=== PATIENT | male | born 1940 | race Caucasian/White ===

== ENCOUNTER 2021-06-25 11:52 | Emergency (ER) | payer MEDICARE, SELFPAY ==
[2021-06-25 11:58] VITALS: BP 142/78; PULSE 68; RESP 18; TEMP 36.4; O2SAT 96; BMI 30.7
--- NOTE | 2021-06-25 12:20 | DI.CT.S_ITS ---
PROCEDURE: CT HEAD/BRAIN WO CON INDICATIONS: fall head injury on Xarelto TECHNIQUE: Noncontrast 4.5 mm thick angled axial sections acquired from the foramen magnum to the vertex, with coronal and sagittal reformats. For radiation dose reduction, the following was used: automated exposure control, adjustment of mA and/or kV according to patient size. COMPARISON: [facility], CR, XR KNEE RT 3V, 06/25/2021, 12:26. FINDINGS: Image quality: Excellent. CSF spaces: Basal cisterns are patent. No extra-axial fluid collections. The ventricles are symmetric in size and shape. Brain: No intracranial bleeds or masses. There is cerebral volume loss for age, with resultant ventricular and sulcal prominence. There are periventricular and deep white matter chronic small vessel ischemic changes. There is intracranial internal carotid artery atherosclerosis. Skull and face: Mild right forehead hematoma is seen, without an associated fracture. Calvarium and visualized facial bones appear intact, without suspicious lesions. Sinuses: Visualized sinuses and mastoids are clear. Cervical spine fixation hardware is seen on the [employer] work image. IMPRESSION: No acute intracranial hemorrhage is seen. Mild right forehead hematoma, without an associated fracture. Note is made of age-appropriate brain parenchymal volume loss and chronic small vessel ischemic changes. Dictated by: Mac Cordero M.D. on 06/25/2021 at 11:50 Approved by: Mac Cordero M.D. on 06/25/2021 at 11:51
--- NOTE | 2021-06-25 12:26 | DI.RAD.S_ITS ---
PROCEDURE: XR KNEE RT 3V INDICATIONS: fall on rt knee TECHNIQUE: 3 views of the knee were acquired. COMPARISON: None. FINDINGS: Bones: No fractures or dislocations. No suspicious bony lesions. Right knee arthroplasty hardware is seen, without findings of failure or loosening. Soft tissues: There is a small joint effusion. No suspicious soft tissue calcifications. IMPRESSION: Unremarkable study with postoperative hardware, without an acute fracture or other acute abnormality seen. Small joint effusion noted. If there is point tenderness (or other clinical suspicion for a fracture not seen on these images) then a dedicated CT could be considered for further evaluation, if clinically appropriate. Dictated by: Mac Cordero M.D. on 06/25/2021 at 11:49 Approved by: Mac Cordero M.D. on 06/25/2021 at 11:50
--- NOTE | 2021-06-25 12:28 | ED_ITS ---
HPI - Fall <MYLES Bell - Last Filed: 06/25/21 20:09> General Chief Complaint: Fall Stated Complaint: GLF on Blood Thinners Time Seen by Provider: 06/25/21 12:20 Source: patient Mode of arrival: EMS History of Present Illness HPI Narrative: 81-year-old male presents to the emergency department with a ground level fall hitting his head today while walking. Patient is on a tour bus from [facility], states was walking around town, it tripped and fell forward hitting his face on the ground. He denies any loss of consciousness, denies any vision changes, dizziness, lightheadedness, neck pain, chest pain, shortness of breath, endorses right knee pain as his only other symptoms. He states he takes 12 mg of Xarelto nightly, no other doses of Xarelto. He denies any mental status changes, speech changes, his fall was witnessed, denies any nausea, vomiting, or other symptom. He states he is on a tour bus that leaves at 1330 hours. He has a small 1 cm laceration to his right forehead, bleeding has stopped. Patient has abrasions to his chin nose forehead right knee. Patient has a history of total right knee put replacement. He denies any medial or lateral knee pain, any pain with knee movement however has tenderness distal to the patella with an abrasion there. He endorses normal full range of motion in his right knee. Related Data Allergies Allergy/AdvReac Type Severity Reaction Status Date / Time No Known Drug Allergies Allergy Verified 06/25/21 12:38 Review of Systems <MYLES Bell - Last Filed: 06/25/21 20:09> Review of Systems Narrative: General: denies fever, chills, malaise, sweats, fatigue Head/Neck: denies headache, neck pain, dizziness, lightheadedness, patient has a cm laceration above his right eyebrow, bleeding is controlled, he has abrasions on his forehead, nose, chin Eyes: denies visual changes, eye pain, pain with eye movement, photosensitivity Cardio: denies chest pain, palpitations, edema Respiratory: denies dyspnea, cough, orthopnea GI: denies abdominal pain, nausea, vomiting, or diarrhea : denies dysuria, hematuria, urinary retention, frequency or incontinence MSK: Endorses right knee pain below his patella, denies any muscle weakness or sensation changes Skin: denies rash, itching, skin lesions or other Neuro: denies numbness, tingling Patient History <MYLES Bell - Last Filed: 06/25/21 20:09> Social History Smoking Status: Never smoker Smoking Status: Never smoker alcohol intake frequency: 0-2 drinks per day Substance Use Type: does not use Exam <MYLES Bell - Last Filed: 06/25/21 20:09> Narrative Exam Narrative: Independently reviewed vitals signs and nursing notes. General: cooperative, comfortable, in no acute distress, well developed and well groomed Head: Abrasions to patient's chin, nose, forehead, with the linear 1 cm laceration to his right forehead above his right eyebrow. symmetrical facial expressions Neck: supple, atraumatic, without lymphadenopathy. Eyes: pupils equal round and reactive, EOMI, conjunctiva normal, no visual field cut Nose: nares patent, no rhinorrhea Mouth/Throat: uvula midline, moist mucus membranes, no oral pharyngeal injury, no blood in oropharynx Cardiovascular: regular rate and rhythm, no peripheral edema, warm extremities Respiratory: normal effort, able to speak in complete sentences, no audible wheezing, stridor, or rales. No retractions or tachypnea. GI: abdomen soft, nontender to palpation, nondistended, no masses, no exquisite tenderness with exam, without guarding or rebound. MSK: moves all extremities, ambulatory w/steady gait, neurovascularly intact, no weakness, right knee has a vertical scar from his total knee replacement, abrasion distal to the patella, over the patellar tendon, this is tender to palpation, feels intact, patient able to fully extend and flex his right knee without deficit, no tenderness over LCL or MCL, no obvious knee effusion, abrasion present, no bleeding Skin: brisk capillary refill, no rash, no erythema Neuro: normal speech and cognition, A&O x3, normal tone Psych: mental status is grossly normal, congruent mood, normal affect, pleasant and cooperative Initial Vital Signs Initial Vital Signs: Vital Signs Temperature 97.5 F L 06/25/21 11:58 Pulse Rate 68 06/25/21 11:58 Respiratory Rate 18 06/25/21 11:58 Blood Pressure 142/78 H 06/25/21 11:58 Pulse Oximetry 96 06/25/21 11:58 <Jessi Samuel MD - Last Filed: 06/26/21 09:44> Initial Vital Signs Initial Vital Signs: Vital Signs Temperature 97.5 F L 06/25/21 11:58 Pulse Rate 68 06/25/21 11:58 Respiratory Rate 18 06/25/21 11:58 Blood Pressure 142/78 H 06/25/21 11:58 Pulse Oximetry 96 06/25/21 11:58 Procedures <MYLES Bell - Last Filed: 06/25/21 20:09> Laceration Repair Laceration 1: Site: face Side (If applicable): right Size (cm): 1 Description: linear Depth: simple, single layer Local Anesthetic: lidocaine 1% and with bicarb Amount of anesthesia used (mL): 2 Pre-repair: wound explored and irrigated extensively Skin layer closed with: nylon Skin layer suture size: 6-0 Number of sutures: 5 Technique: simple, interrupted Course <MYLES Bell - Last Filed: 06/25/21 20:09> Orders Ordered: Discontinued Medications Acetaminophen (Acetaminophen 325 Mg Tablet) 975 mg PO NOW ONE Stop: 06/25/21 12:27 Last Admin: 06/25/21 12:45 Dose: 975 mg Documented by: CORRINE Bacitracin (Bacitracin Oint 0.9 Gm Pckt) 2 applic TOP NOW ONE Stop: 06/25/21 12:28 Last Admin: 06/25/21 12:45 Dose: 2 applic Documented by: CORRINE Diphtheria/Tetanus/Acell Pertussis (Tet,Diph,Pertuss(Acell),Vac/Pf 0.5 Ml Syringe) 0.5 ml IM .ONCE ONE Stop: 06/25/21 12:40 Last Admin: 06/25/21 12:51 Dose: Not Given Documented by: CORRINE Lidocaine/Sodium Bicarbonate (Lido 1%/Sod Bicarb 8.4% (10ml) 10 Ml Syringe) 10 ml INJ NOW ONE Stop: 06/25/21 12:21 Last Admin: 06/25/21 12:45 Dose: 10 ml Documented by: CORRINE Vital Signs Vital signs: Vital Signs - 8 hr 06/25/21 13:21 Pulse Rate 71 Respiratory Rate 16 Blood Pressure 137/77 Pulse Oximetry 96 <Jessi Samuel MD - Last Filed: 06/26/21 09:44> Orders Ordered: Discontinued Medications Acetaminophen (Acetaminophen 325 Mg Tablet) 975 mg PO NOW ONE Stop: 06/25/21 12:27 Last Admin: 06/25/21 12:45 Dose: 975 mg Documented by: CORRINE Bacitracin (Bacitracin Oint 0.9 Gm Pckt) 2 applic TOP NOW ONE Stop: 06/25/21 12:28 Last Admin: 06/25/21 12:45 Dose: 2 applic Documented by: CORRINE Diphtheria/Tetanus/Acell Pertussis (Tet,Diph,Pertuss(Acell),Vac/Pf 0.5 Ml Syringe) 0.5 ml IM .ONCE ONE Stop: 06/25/21 12:40 Last Admin: 06/25/21 12:51 Dose: Not Given Documented by: CORRINE Lidocaine/Sodium Bicarbonate (Lido 1%/Sod Bicarb 8.4% (10ml) 10 Ml Syringe) 10 ml INJ NOW ONE Stop: 06/25/21 12:21 Last Admin: 06/25/21 12:45 Dose: 10 ml Documented by: CORRINE Vital Signs Vital signs: Vital Signs - 8 hr 06/25/21 13:21 Pulse Rate 71 Respiratory Rate 16 Blood Pressure 137/77 Pulse Oximetry 96 MDM - Fall <MYLES Bell - Last Filed: 06/25/21 20:09> Imaging Data Extremity x-ray #1: Radiologist's Impression: PROCEDURE:? XR KNEE RT 3V ? INDICATIONS:? fall on rt knee ? TECHNIQUE:? 3 views of the knee were acquired.? ? COMPARISON:? None. ? FINDINGS:? ? Bones:? No fractures or dislocations.? No suspicious bony lesions.? ? Right knee arthroplasty hardware is seen, without findings of failure or loosening. ? Soft tissues:? There is a small joint effusion.? No suspicious soft tissue calcifications.? ? ? IMPRESSION:? Unremarkable study with postoperative hardware, without an acute fracture or other acute abnormality seen. ? Small joint effusion noted. ? If there is point tenderness (or other clinical suspicion for a fracture not seen on these images) then a dedicated CT could be considered for further evaluation, if clinically appropriate. ? Dictated by: Mac Cordero M.D. on 06/25/2021 at 11:49 ? ? Approved by: Mac Cordero M.D. on 06/25/2021 at 11:50 ? CT scan - head: Radiologist's Impression: PROCEDURE:? CT HEAD/BRAIN WO CON ? INDICATIONS:? fall head injury on Xarelto ? TECHNIQUE:? Noncontrast 4.5 mm thick angled axial sections acquired from the foramen magnum to the vertex, with coronal and sagittal reformats.? For radiation dose reduction, the following was used:? automated exposure control, adjustment of mA and/or kV according to patient size.? ? COMPARISON:? [facility], CR, XR KNEE RT 3V, 06/25/2021, 12:26. ? FINDINGS:? Image quality:? Excellent.? ? CSF spaces:? Basal cisterns are patent.? No extra-axial fluid collections.? The ventricles are symmetric in size and shape.? ? Brain:? No intracranial bleeds or masses.? There is cerebral volume loss for age, with resultant ventricular and sulcal prominence.? There are periventricular and deep white matter chronic small vessel ischemic changes.? There is intracranial internal carotid artery atherosclerosis.? ? Skull and face:? Mild right forehead hematoma is seen, without an associated fracture.? Calvarium and visualized facial bones appear intact, without suspicious lesions.? ? Sinuses:? Visualized sinuses and mastoids are clear.? ? Cervical spine fixation hardware is seen on the [employer] image. ? IMPRESSION:? No acute intracranial hemorrhage is seen.? ? Mild right forehead hematoma, without an associated fracture. ? Note is made of age-appropriate brain parenchymal volume loss and chronic small vessel ischemic changes. ? ? Dictated by: Mac Cordero M.D. on 06/25/2021 at 11:50 ? ? Approved by: Mac Cordero M.D. on 06/25/2021 at 11:51 ? MDM Narrative Medical decision making narrative: This is a pleasant 81-year-old male who presents to the emergency department after ground level fall, states he tripped on the sidewalk and fell forward striking his right forehead on the ground. Patient is on Xarelto, he takes 12 mg nightly for his atrial fibrillation. Patient is visiting from [facility] on a tour bus, states he was walking around town, tripped, fell for, did not lose consciousness, denies any headache, denies any nausea or vomiting, mental status changes, his fall was witnessed by his , she denies any speech changes or altered mentation. CT head obtained without any intracranial abnorm ality or hemorrhage, it does show his right forehead hematoma without associated fracture, knee x-ray obtained which shows a small joint effusion, postoperative hardware without acute fracture or acute abnormality. Patient had full range of motion of his right knee without any deficit, did not want any splinting of this, wounds were cleansed and covered with bacitracin and Band-Aids. 2 cm laceration on his right forehead with associated hematoma. Wound was cleansed with normal saline, irrigated, bleeding was controlled with pressure, 5, 6.0 Ethilon sutures were placed, patient's tetanus was already up-to-date and did not receive a new 1 today. Patient did not have any neuro deficits, unremarkable neuro exam. Patient is alert, oriented, interactive, very pleasant. He was able to make his to about this and was discharged. He states that he has a up an appointment with his PCP 5 days, and this is when he will have his sutures taken out. Patient is appropriate and amenable to discharge home. Vital signs are stable on repeat examination is unremarkable. Patient has been informed of results. Patient has been given strict return to ER precautions for any new or worsening symptoms. Patient understands to follow up closely with outpatient providers as instructed. Patient understands plan and agrees to discharge home. All questions and concerns answered at this time. Discharge Plan Departure Patient Disposition: Home Clinical Impression: Forehead laceration Qualifiers: Encounter type: initial encounter Qualified Code(s): S01.81XA - Laceration without foreign body of other part of head, initial encounter Instructions: DI for Laceration Repair, How to Prevent Falls Activity Restrictions/Additional Instructions: *You have been diagnosed with a fall with a forehead laceration receiving 5 known dissolvable sutures. Please have these removed in [address] head does not show any intracranial bleeding or skull fracture. Please monitor yourself for symptoms of concussion or head injury including difficulty concentrating, fatigue, headache, photosensitivity, or other symptoms. If you began having nausea and vomiting, severe headache, vision changes, neck pain, weakness or any other concerning symptom please go to the emergency department immediately. Please follow-up with your primary care provider in 5 days at your scheduled appointment and have your sutures removed. Thank you for trusting us with your care, please take Tylenol every 6 hours as needed for pain. Please keep your wound covered with a Band-Aid, Polysporin is okay if you are not allergic to it. You can ice her knee, there is no fracture or problems with your hardware. I did not see any joint effusion either. Please keep it covered with a Band-Aid while it still has a wound so does not stick to your pants. I hope you feel better soon, it was a pleasure to meet you both. *What to do: *Please continue to take your regular medications as directed. [ ] New medication prescriptions sent to your pharmacy: [ ] [ ] New medication written as a paper prescription [ x] No new medications given *Please follow up with your primary care provider in 2-3 days, call for an a ppointment. Let them know you were seen in the Emergency Department and that we asked that you be seen for follow-up. We will electronically transmit a record of today's note if your PCP is in our system *If you do not have a primary care provider please contact [phone] to establish care with one of the [facility] primary care providers. *Return to Emergency Department if you should have any new, worsening or concerning symptoms, such as [fever greater than 101F, chills, worsening pain, persistent vomiting or other bothersome symptoms] Referrals: Miscellaneous,[facility] [Primary Care Provider] - <Jessi Samuel MD - Last Filed: 06/26/21 09:44> Cosign ED Attending Margieature Attestation: I was immediately available in the department for consultation throughout this patient's visit. I agree with documentation as above. Jessi Samuel MD
[2021-06-25] MEDS: BACITRACIN OINT 0.9 GM PCKT 2 APPLIC TOP (12:45)
[2021-06-25] MEDS: ACETAMINOPHEN 325 MG TABLET 975 MG PO (12:45)
[2021-06-25] MEDS: LIDO 1%/SOD BICARB 8.4% (10ML) 10 ML SYRINGE INJ (12:45)
[2021-06-25 13:21] VITALS: BP 137/77; PULSE 71; RESP 16; O2SAT 96
== END 2021-06-25 13:22 | disposition home or self-care (01) ==
PROVIDERS: Emergency Provider Nurse Practitioner Critical Care Medicine
DX: S01.81XA Laceration without foreign body of other part of head, initial encounter (principal); Z79.01 Long term (current) use of anticoagulants; W01.0XXA Fall on same level from slipping, tripping and stumbling without subsequent striking against object, initial encounter; Y93.01 Activity, walking, marching and hiking
CPT/HCPCS: 12011; 70450; 73562; 93005; 99284